=== PATIENT | female | born 2000 | race Caucasian/White ===

== ENCOUNTER 2024-02-14 08:53 | Emergency (ER) | payer BC, SELFPAY ==
[2024-02-14 09:02] VITALS: BP 141/97
--- NOTE | 2024-02-14 09:19 | ED.GENMED ---
History of Present Illness
General
Chief Complaint: Flank Pain
Source: patient
Exam Limitations: none
Time Seen by Provider: 02/14/24 09:07
History of Present Illness
History of Present Illness:
Urinary urgency frequency x 3 to 4 days. Developed right flank pain this morning. No fever or chills. No nausea or vomiting. Menstrual periods are normal. Midcycle. No other complaints.
Past History
Past History
ED Past Medical History: None
ED Past Surgical History: Other (Ladson teeth)
Review of Systems
Review of Systems
All Other Systems: Not applicable
Constitutional: Denies fever or chills
ABD/GI: Denies abdominal pain
Phy Exam
Physical Exam
Physical Exam:
GENERAL: Alert and oriented in no apparent distress
EYE: Orbits normal.
NECK: Supple
CARDIAC: Regular rate and rhythm without any obvious murmurs.
LUNGS: Clear breath sounds,normal
ABDOMEN: Soft, without focal tenderness or distention. No CVA tenderness
NEUROLOGICAL: Alert and oriented , grossly non-focal
SKIN: Warm and dry, no rash or lesion, no discoloration, skin intact.
MUSCULOSKELETAL: No edema,no deformity.Good color
PSYCH: Normal and appropriate interaction.
Course
Orders/Labs/Results
Orders:
Orders
02/14/24 09:06
Test Result ONCE
02/14/24 09:08
HCG, Urine Qualitative Screen Urgent
Date Specimen was Collected: 02/14/24
Time Specimen was Collected: 09:06
Urinalysis Reflex To Culture Urgent
Date Specimen was Collected: 02/14/24
Time Specimen was Collected: 09:06
Urine Microscopic Reflex Cult Urgent
Urine Culture Urgent
SHANEL Source: U
Specimen Description:
Date Specimen was Collected: 02/14/24
Time Specimen was Collected: 09:06
02/14/24 09:16
IV Insert/Care/Rem.- Treatment PRN
0.9% Sodium Chloride 1000 ml [Nss] 1,000 ml IV BOLUS
Ketorolac [Toradol] 15 mg IV NOW STA
02/14/24 09:46
Complete Blood Count/With Diff Urgent
Comprehensive Metabolic Panel Urgent
02/14/24 10:34
CT Abd/pel Without Iv Or Oral Urgent
Comment:
Reason For Exam: Right flank pain
02/14/24 11:32
CefTRIAXone [Rocephin] 1,000 mg IV NOW STA
Abnormal Lab Results
02/14/24 02/14/24
09:08 09:46
Neutrophils % 75.7 H %
(42.2-75.2)
Lymphocytes % 16.9 L %
(20.5-51.1)
Glucose 118 H mg/dl
(70-99)
Ur Occult Blood Reflex 3+ A
(Negative)
Leukocyte Esterase Rfl 1+ A
(Negative)
Urine RBC 3-6 A /HPF
(0-2)
Urine WBC (Reflex) 11-15 A /HPF
(0-5)
02/14/24 09:46
02/14/24 09:46
Vital Signs
Initial and Last Documented VS:
Initial Vital Signs
Temp Pulse Resp BP Pulse Ox
98.7 F 95 18 141/97 98
02/14/24 09:02 02/14/24 09:02 02/14/24 09:02 02/14/24 09:02 02/14/24 09:02
Last Documented Vital Signs
Temp Pulse Resp BP Pulse Ox
98.7 F 95 18 141/97 98
02/14/24 09:02 02/14/24 09:02 02/14/24 09:02 02/14/24 09:02 02/14/24 09:02
MDM/Problems Addressed
Differential Diagnosis Includes:
UTI/pyelo plus minus kidney stone.
*Radiology
Radiology exam reviewed: radiology read reviewed (No hydronephrosis or kidney stone. Some bladder wall thickening. Physiologic free fluid. Appendix normal.)
*Pulse Oximetry
Patient hypoxic: no
*Critical Care Note
Total Time (30-74mins, 75-104mins- exclusive of procedures): Not Applicable
Update Note
Update Note:
Patient with flank pain mild urinary symptoms. Will treat for UTI/early Pyelo. No obstructing stone. Nothing to support acute abdominal process.
ED Attending Note
-
Portions of this chart may have been created with voice recognition software.� Occasional wrong word or��sound alike� substitutions may have occurred due to the inherent limitations of voice recognition software.
Discharge Plan
Departure
Patient Disposition: Home (Routine Discharge)
Date of Disposition: 02/14/24
Time of Disposition: 11:57
Patient with high blood pressure during this ER visit?: Yes
Discharge Problem:
UTI/early pyelonephritis, Right flank pain
Instructions: Urinary tract infections in adults, Flank Pain (DC), BLOOD PRESSURE
Prescriptions:
New
cefdinir 300 mg capsule
300 mg PO BID 7 Days Qty: 14 0RF
Referrals:
Frannie Brown CRNP [Family Provider] - Follow up in 2-3 days
Activity Restrictions/Additional Instructions:
Start the oral antibiotic tomorrow morning. Close follow-up with your primary physician
Interventions
Interventions:
*Risk Screen - Suicide Last Done: 02/14/24 09:02
*General Assessment Last Done: 02/14/24 09:02
*Neglect/Abuse Screening Last Done: 02/14/24 09:02
Discharge Date and Time
Print Language: [email or web address]
[2024-02-14 09:24] LABS: Urine Albumin Negative (Neg - Trace); Urine Bilirubin Negative (Negative); Urine Character Clear (Clear); Urine Color Yellow; Urine Glucose Negative (Negative); Urine Ketone Negative (Negative); Urine Leukocyte 1+ (Negative); Urine Nitrite Negative (Negative); Urine Occult Blood 3+ (Negative); Urine Urobilinogen Negative (Neg - 1+)
[2024-02-14] MEDS: TORADOL 15 MG IV (09:40)
[2024-02-14] MEDS: NSS 1000 IV (09:42)
[2024-02-14 09:47] LABS: HCG, Urine Qualitative Screen Negative
[2024-02-14 10:18] LABS: % Basophils 0.5 % (0-2); % Immature Granulocytes 0.2 % (0-0.5); % Lymphocytes 16.9 % (20.5-51.1); % Monocytes 5.7 % (1.7-9.3); % Neutrophils 75.7 % (42.2-75.2); Absolute Eosinophils 0.1 10^3/uL (0-0.7); Absolute Lymphocytes 1.4 10^3/uL (1.2-3.4); Absolute Monocytes 0.5 10^3/uL (0.1-0.6); Absolute Neutrophils 6.1 10^3/uL (1.4-6.5); Hematocrit 37.3 % (37.0-47.0); Hemoglobin 13.1 g/dL (12.0-16.0); Mean Corp Hgb Conc. 35.1 g/dL (33.0-37.0); Mean Corpuscular Hgb 29.9 pg (27.0-31.0); Mean Corpuscular Volume 85.2 fL (81.0-99.0); Mean Platelet Volume 10.2 fL (7.4-10.4); Nucleated Red Blood Cells % 0 %; Platelet Count 276 10^3/uL (130-400); Red Blood Cell Count 4.38 10^6/uL (4.20-5.40); Red Cell Dist. Width 12.1 % (11.5-14.5); White Blood Cell Count 8.1 10^3/uL (4.8-10.8)
[2024-02-14 10:28] LABS: ALT (SGPT) 14 U/L (0-35); AST (SGOT) 22 U/L (14-36); Albumin 4.4 g/dl (3.5-5.0); Alkaline Phosphatase 38 U/L (38-126); Blood Urea Nitrogen 9 mg/dl (7-17); Calcium 9.8 mg/dl (8.4-10.2); Carbon Dioxide 24 mmol/L (22-30); Chloride 103 mmol/L (98-107); Glucose 118 mg/dl (70-99); Sodium 137 mmol/L (135-145); Total Bilirubin 0.5 mg/dl (0.2-1.3); Total Protein 6.9 g/dl (6.3-8.2); eGFR > 60.00
[2024-02-14] MEDS: ROCEPHIN 1000 MG IV (12:07)
[2024-02-14 12:16] VITALS: BP 114/77
[2024-02-14 12:19] VITALS: BP 114/77
== END 2024-02-14 12:20 | disposition home or self-care (01) ==
LOC: EMR 08:53
PROVIDERS: Student in an Organized Health Care Education/Training Program; EMERGENCY PHYSICIAN Emergency Medicine; FAMILY PHYSICIAN Nurse Practitioner Family
DX: N12 Tubulo-interstitial nephritis, not specified as acute or chronic (principal); N39.0 Urinary tract infection, site not specified; R10.9 Unspecified abdominal pain; R03.0 Elevated blood-pressure reading, without diagnosis of hypertension
CPT/HCPCS: 99284; 96374; 96375; 74176; 80053; 81003; 81015; 81025; 85025; 87086; 87147

== ENCOUNTER → 2024-02-18 13:45 | Outpatient (REF) | payer BC, SELFPAY | LOC: RAD 13:45 | PROVIDERS: ATTENDING PHYSICIAN Family Medicine | DX: R10.9 Unspecified abdominal pain (principal) | CPT/HCPCS: 76830; 76856 ==